=== PATIENT | male | born 1980 | race Asian ===

== ENCOUNTER 2021-07-29 09:20 | Emergency (ER) | payer OTHER ==
[~2021-07-29] VITALS: Ht 185.4 cm; Wt 88.5 kg
--- NOTE | 2021-07-29 09:30 | NUR ---
Dr Chilel at the bedside for MSE.
[2021-07-29 09:41] VITALS: BP 137/96
--- NOTE | 2021-07-29 09:41 | NUR ---
Patient discharged to home in stable condition. Written and verbal after care instructions given. Patient verbalizes understanding of instructions. Stressed follow up or return to ER for worsening s/s.
== END 2021-07-29 09:41 | disposition home or self-care (01) ==
LOC: ER 09:20
DX: Z04.2 Encounter for examination and observation following work accident (principal); Z77.21 Contact with and (suspected) exposure to potentially hazardous body fluids
CPT/HCPCS: A4663